=== PATIENT | male | born 1975 | race Caucasian/White ===

== ENCOUNTER 2020-04-19 10:13 | Emergency (ER) | payer OTHER, SELFPAY ==
[2020-04-19 10:37] VITALS: BP 126/86; PULSE 88; RESP 16; TEMP 36.9; O2SAT 98
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
== END 2020-04-19 11:30 | disposition home or self-care (01) ==
PROVIDERS: Emergency Provider Registered Nurse
DX: L98.9 Disorder of the skin and subcutaneous tissue, unspecified (principal)
CPT/HCPCS: 99213; G0463